=== PATIENT | male | born 1970 | race Caucasian/White ===

== ENCOUNTER 2017-12-03 13:23 | Inpatient (IN) | payer OTHER ==
[~2017-12-03] VITALS: Ht 175.3 cm; Wt 79.5 kg
[2017-12-03 15:17] LABS: BASOPHILS % 0.7 % (0.0-2.0); EOSINOPHILS % 0.2 % (0.0-5.0); HEMATOCRIT. 34.8 % (42.0-52.0); HEMOGLOBIN. 11.9 g/dL (14.0-18.0); LYMPHOCYTES % 12.3 % (20.0-50.0); MEAN CORPUSCULAR HEMOGLOBIN 30.2 pg (28.0-32.0); MEAN CORPUSCULAR VOLUME 87.9 fL (80.0-94.0); MEAN PLATELET VOLUME 10.9 fl (7.4-10.4); MONOCYTES % 8.6 % (2.0-8.0); NEUTROPHILS % 78.2 % (40.0-76.0); PLATELET 105 x1000/uL (130-400); RED BLOOD CELL COUNT 3.95 mill/uL (4.7-6.1); RED CELL DISTRIBUTION WIDTH 13.1 % (11.6-14.6)
[2017-12-03] MEDS ORDERED: ACETAMINOPHEN 325MG TABLET PO STA (15:22)
[2017-12-03 15:23] LABS: CHLORIDE 96 mEq/L (98-107)
[2017-12-03 15:24] LABS: PROTHROMBIN TIME 10.3 sec (9.1-11.1)
[2017-12-03] MEDS ORDERED: VANCOMYCIN 1 G PREMIX 200 ML IV ONE (15:30)
[2017-12-03] MEDS ORDERED: PIPERACILLIN/TAZ 3.375G PREMIX 50 ML IV ONE (15:30)
[2017-12-03] MEDS ORDERED: SODIUM CHLORIDE 0.9% 1000ML BAG (SEPSIS BOLUS) IV ONE (15:30)
[2017-12-03 16:08] LABS: CLARITY URINE CLEAR (CLEAR); COLOR URINE DARK YELLOW (YELLOW); KETONES URINE TRACE (NEGATIVE); LEUKOCYTE ESTERASE URINE NEGATIVE (NEGATIVE); NITRITE URINE NEGATIVE (NEGATIVE); OCCULT BLOOD URINE 2+ (NEGATIVE); PH URINE 5.5 (4.5-8.0); PROTEIN URINE TRACE (NEGATIVE); SPECIFIC GRAVITY URINE 1.025 (1.005-1.030)
[2017-12-03 16:21] LABS: *AMPHETAMINES SCREEN URINE PRESUMTIVE POSITIVE (NEGATIVE); *BARBITURATES SCREEN URINE NEGATIVE (NEGATIVE); *BENZODIAZEPINES SCREEN URINE NEGATIVE (NEGATIVE); *COCAINE SCREEN URINE NEGATIVE (NEGATIVE); METHADONE URINE SCREEN NEGATIVE (NEGATIVE); OPIATES URINE SCREEN NEGATIVE (NEGATIVE); PHENCYCLIDINE URINE SCREEN NEGATIVE (NEGATIVE)
[2017-12-03 16:22] LABS: CANNABINOID URINE SCREEN NEGATIVE (NEGATIVE)
[2017-12-03 17:36] LABS: ETHANOL BLOOD < 10 mg/dL
[2017-12-03] MEDS ORDERED: ASPIRIN 325MG TABLET PO NR (18:00)
[2017-12-03] MEDS ORDERED: IBUPROFEN 400MG TABLET PO ONE (20:15)
[2017-12-03 22:37] VITALS: BP 105/72
[2017-12-03] MEDS ORDERED: LORAZEPAM 2MG/ML CPJ IV PRN (23:00)
[2017-12-03] MEDS ORDERED: ENOXAPARIN 40MG/0.4ML SYR SUBCUT SCH (23:00)
[2017-12-03] MEDS ORDERED: ONDANSETRON HCL 4MG/2ML VIAL IV PRN (23:00)
[2017-12-03] MEDS ORDERED: DOCUSATE SODIUM 100MG CAPSULE PO PRN (23:00)
[2017-12-03] MEDS ORDERED: SODIUM CHLORIDE 0.9% 1,000 ML IV SCH (23:00)
[2017-12-04] VITALS: BP 102/62
[2017-12-04] MEDS: VANCOMYCIN 1 G PREMIX 200 ML IV SCH ×2 (00:31→08:34)
[2017-12-04] MEDS: ACETAMINOPHEN 325MG TABLET PO PRN ×2 (00:33→08:54)
[2017-12-04 04:00] VITALS: BP 106/60
[2017-12-04 06:01] LABS: BASOPHILS % 0.3 % (0.0-2.0); EOSINOPHILS % 0.7 % (0.0-5.0); HEMOGLOBIN. 11.3 g/dL (14.0-18.0); LYMPHOCYTES % 9.9 % (20.0-50.0); MEAN CORPUSCULAR HEMOGLOBIN 30.3 pg (28.0-32.0); MEAN CORPUSCULAR VOLUME 88.6 fL (80.0-94.0); MEAN PLATELET VOLUME 11.1 fl (7.4-10.4); MONOCYTES % 9.8 % (2.0-8.0); NEUTROPHILS % 79.3 % (40.0-76.0); PLATELET 98 x1000/uL (130-400); RED BLOOD CELL COUNT 3.72 mill/uL (4.7-6.1); RED CELL DISTRIBUTION WIDTH 13.2 % (11.6-14.6)
[2017-12-04 06:24] LABS: CHLORIDE 104 mEq/L (98-107)
[2017-12-04 06:34] LABS: PHOSPHORUS 2.5 mg/dL (2.5-4.9)
[2017-12-04 08:11] VITALS: BP 100/64
[2017-12-04] MEDS ORDERED: PNEUMOCOCCAL 23-VAL P-SAC VAC 0.5 ML IM ONE (10:00)
[2017-12-04] MEDS ORDERED: POTASSIUM CHLORIDE 20MEQ TABLET SR PO NR (12:39)
[2017-12-04 12:44] VITALS: BP 104/62
[2017-12-04] MEDS ORDERED: ASPIRIN 81MG EC TABLET PO SCH (12:45)
[2017-12-04 15:56] VITALS: BP 111/63
[2017-12-04 17:49] VITALS: BP 111/63
[2017-12-04] MEDS ORDERED: VANCOMYCIN 1500MG in DEXTROSE 5% WATER 250ML IV SCH (18:00)
[2017-12-04] MEDS ORDERED: VANCOMYCIN 1,750 MG in DEXT 5% WATER 500 ML IV SCH (18:00)
== END 2017-12-04 18:57 | disposition short-term general hospital (02) | DRG 720 ==
LOC: ER 13:23 → 6WST 16:21 → EDBEDREQ 16:34 → EDBEDREQSVC 16:34 → EDBEDREQTM 16:34 → ENRESERV 19:50
PROVIDERS: ADMIT Internal Medicine Nephrology; ATTEND Internal Medicine Nephrology
DX: A41.9 Sepsis, unspecified organism (principal); I21.4 Non-ST elevation (NSTEMI) myocardial infarction; D69.6 Thrombocytopenia, unspecified; E44.1 Mild protein-calorie malnutrition; E87.1 Hypo-osmolality and hyponatremia; E87.2 Acidosis; E87.6 Hypokalemia; F17.200 Nicotine dependence, unspecified, uncomplicated; I10 Essential (primary) hypertension; L03.116 Cellulitis of left lower limb; L03.115 Cellulitis of right lower limb; Z59.0 Homelessness; Z68.25 Body mass index [BMI] 25.0-25.9, adult
CPT/HCPCS: 36415; 71045; 73590; 80048; 80053; 80202; 80305; 81003; 83605; 83690; 83735; 83880; 84100; 84484; 85025; 85610; 87040; 87086; 93005; 93306; 96365; 96367; 99291; G0482; J1650; J2543; J3370; J7030; J7060